=== PATIENT | male | born 1990 | race Caucasian/White ===

== ENCOUNTER 2023-02-28 22:34 | Emergency (ER) | payer OTHER, SELFPAY ==
[2023-02-28 22:39] VITALS: BP 123/66; PULSE 62; RESP 16; TEMP 36.3; O2SAT 96; BMI 32.8
--- NOTE | 2023-02-28 22:53 | CRLHL7_ITS ---
For Patients: As a result of the Cures Act, medical imaging exams and procedure reports are released immediately into your electronic medical record. You may view this report before your referring provider. If you have questions, please contact your health care provider. INDICATION: Palpitations. TECHNIQUE: Chest radiograph, 1 view. COMPARISON: None. FINDINGS: Lines/Tubes/Devices: None. Mediastinum: Normal cardiac silhouette. Lungs: No focal consolidation. Airways: The trachea remains midline. Pleura: No pleural effusions or pneumothorax. Bones: No acute osseous abnormalities. Upper Abdomen: Unremarkable. IMPRESSION: No acute cardiopulmonary process. Dictated by Ozzy Medina MD @ 02/28/2023 11:40:20 PM (Electronically Signed)
--- NOTE | 2023-02-28 22:54 | ED_ITS ---
HPI - Arrhythmia/Palpitations General Chief Complaint: Arrhythmia/Palpitations Stated Complaint: heart palpitations Time Seen by Provider: 02/28/23 22:48 History of Present Illness HPI narrative: Patient is a 32-year-old gentleman comes in today with palpitations for last 5 days. He feels like his heart is irregular at times and races at times and is slow at times. He saw his primary care doctor earlier in the week and had a Holter monitor. Those results are pending. He did have some chest pain earlier today but not for last several hours. He states he feeling his heart beat is weak and came into the emergency room. Had no shortness of breath no diaphoresis no nausea no vomiting no fevers no chills. He takes no medications and has no history of heart problems in the past. Upon arrival EKG upon my review shows normal sinus rhythm no acute ST or T-wave changes normal IL and QT intervals. Related Data Home Medications Medication Instructions Recorded Confirmed No Known Home Medications 02/28/23 02/28/23 Allergies Allergy/AdvReac Type Severity Reaction Status Date / Time No Known Drug Allergies Allergy Verified 02/28/23 22:44 Review of Systems Status of ROS: Reports: 10 or more systems reviewed and unremarkable except as noted in History and below PFSH PFS Social History Smoking Status: Former smoker Do you use any of these nicotine containing products: None Second hand tobacco smoke exposure: No How often do you have a drink containing alcohol: 4 or more times a week How many standard drinks containing alcohol do you have on a typical day: 1 or 2 AUDIT-C Alcohol total score: 4 Non-prescribed substance use: denies use Exam Narrative: Exam Narrative: EXAM GENERAL: Patient appears comfortable and well. Anxious. EYES: No scleral icterus. ENT: Tympanic membranes and oropharynx normal. THYROID: no thyroid nodules or thyromegaly. LYMPH: No supraclavicular or cervical lymphadenopathy. SKIN: Visible skin seen during exam normal or with benign process only. EXT: No dependent lower extremity pedal edema. HEART: Regular rate and rhythm with no murmurs, rubs, or gallops. LUNGS: Clear to auscultation bilaterally with no crackles or wheezes. ABD: Soft, non tender, non distended. PSYCH: Good eye contact, speech is not pressured. Const: Vital Signs, click to edit/add: Vital Signs - 24 hr 02/28/23 22:39 Temperature 97.4 F L Pulse Rate [Pulse Oximeter] 62 Respiratory Rate 16 Blood Pressure [Ri ght Upper Arm] 123/66 Pulse Oximetry 96 Oxygen Delivery Me thod Room Air Course Course ED Course: Patient seen and examined. Troponin D-dimer CBC basic metabolic panel chest x- ray ordered. Vital Signs Vital signs: Initial Vital Signs Temperature 97.4 F L 02/28/23 22:39 Temperature Source Temporal Artery Scan 02/28/23 22:39 Pulse Rate 62 02/28/23 22:39 Respiratory Rate 16 02/28/23 22:39 Blood Pressure 123/66 02/28/23 22:39 Blood Pressure Mean 85 02/28/23 22:39 Blood Pressure Position Sitting 02/28/23 22:39 Pulse Oximetry 96 02/28/23 22:39 Oxygen Delivery Method Room Air 02/28/23 22:39 Vital Signs Temperature 97.4 F L 02/28/23 22:39 Pulse Rate 62 02/28/23 22:39 Respiratory Rate 16 02/28/23 22:39 Blood Pressure 123/66 02/28/23 22:39 Pulse Oximetry 96 02/28/23 22:39 Oxygen Delivery Method Room Air 02/28/23 22:39 Temperature 97.4 F L 02/28/23 22:39 Pulse Rate 62 02/28/23 22:39 Respiratory Rate 16 02/28/23 22:39 Blood Pressure 123/66 02/28/23 22:39 Pulse Oximetry 96 02/28/23 22:39 Oxygen Delivery Method Room Air 02/28/23 22:39 MDM - Arrhythmia/Palpitations MDM Narrative Medical decision making narrative: Patient presents with a palpitations. Workup is completely normal including D-dimer troponin chest x-ray electrolytes CBC EKG. He has an outstanding and report from a Holter monitor which will be followed up by his primary physician. At this point reassurance is offered he will follow up with his primary Differential Diagnosis Differential diagnosis: Likely palpitations, anxiety, sinus tachycardia, artial fibrillation, artial flutter, ventricular premature beats, supraventricular tachycardia, ventricular tachycardia and WPW Lab Data Labs: Lab Results 02/28/23 Range/Units 23:04 WBC 5.82 (4.50-11.00) K/uL RBC 4.76 (4.30-5.90) m/uL Hgb 13.9 (13.5-17.5) gm/dL Hct 41.4 (37.0-53.0) % MCV 87 (80-100) fL MCH 29 (26-34) pg MCHC 34 (32-36) gm/dL RDW Coeff of Svetlana 13.0 (11.5-15.5) % Plt Count 296 (140-440) K/uL Neut % (Auto) 41.2 L (42.0-72.0) % Lymph % (Auto) 45.7 H (20-44) % [place] % (Auto) 10.7 (0.0-11.0) % Eos % (Auto) 1.0 (0.0-7.0) % Baso % (Auto) 0.7 (0.0-3.0) % Neut # (Auto) 2.40 (1.7-7.0) K/uL Lymph # (Auto) 2.70 (0.90-2.90) K/uL [place] # (Auto) 0.60 (0.00-0.90) K/UL Eos # (Auto) 0.06 (0.00-0.50) K/uL Baso # (Auto) 0.04 (0.00-0.30) K/uL Abs Immat Gran (auto) 0.04 (0.00-0.30) K/uL Imm/Tot Granulo (auto) 0.7 % D-Dimer Quant (PE/DVT) < 0.27 (0.00-0.50) ug/ml Sodium 139 (135-149) mmol/L Potassium 3.9 (3.6-5.1) mmol/L Chloride 105 (96-114) mmol/L Carbon Dioxide 26 (20-32) mmol/L Anion Gap 8 (7-15) mEq/L BUN 18 (5-24) mg/dL Creatinine 0.8 (0.5-1.5) mg/dL Estimated Creat Clear 142.81 Estimated GFR 119 ml/min Glucose 95 (60-115) mg/dL Calcium 9.0 (8.4-10.6) mg/dL Troponin I < 0.01 L (0.01-0.04) ng/mL Discharge Plan Discharge Clinical Impression: Palpitations Patient Disposition: Home, Self-Care Condition: Stable Instructions: Heart Palpitations (ED) Additional Instructions: Monitor symptoms Follow-up with your doctor as scheduled Activity Level: No Restrictions Discharge Diet: Regular Prescriptions: No Action No Known Home Medications Follow Up/Referrals: Provider,Not a Local [Primary Care Provider] - Stand Alone Forms: [employer] Info Instructions
[2023-02-28 23:08] LABS: Basophils Absolute Auto 0.04 K/uL (0.00-0.30); Basophils Percent Auto 0.7 % (0.0-3.0); Eosinophils Absolute Auto 0.06 K/uL (0.00-0.50); Hematocrit 41.4 % (37.0-53.0); Hemoglobin* 13.9 gm/dL (13.5-17.5); Immature Granulocytes Abs Auto 0.04 K/uL (0.00-0.30); Immature Granulocytes Pct Auto 0.7 %; Lymphocytes Percent Auto 45.7 % (20-44); Mean Corpuscular HGB Conc 34 gm/dL (32-36); Mean Corpuscular Hemoglobin 29 pg (26-34); Mean Corpuscular Volume 87 fL (80-100); Monocytes Percent Auto 10.7 % (0.0-11.0); Neutrophils Percent Auto 41.2 % (42.0-72.0); Platelet Count* 296 K/uL (140-440); Red Blood Count 4.76 m/uL (4.30-5.90); White Blood Count* 5.82 K/uL (4.50-11.00)
[2023-02-28 23:11] LABS: Slide Review Reflex No
[2023-02-28 23:19] LABS: Chloride* 105 mmol/L (96-114); Potassium* 3.9 mmol/L (3.6-5.1); Sodium* 139 mmol/L (135-149)
[2023-02-28 23:22] LABS: Anion Gap 8 mEq/L (7-15); Carbon Dioxide* 26 mmol/L (20-32); Creatinine* 0.8 mg/dL (0.5-1.5); Est. Creatinine Clearance* 142.81; Estimated Glomerular Filt Rate 119 ml/min
[2023-02-28 23:23] LABS: Blood Urea Nitrogen* 18 mg/dL (5-24); Glucose* 95 mg/dL (60-115)
[2023-02-28 23:24] LABS: D Dimer Quantitative* < 0.27 ug/ml (0.00-0.50)
[2023-02-28 23:40] LABS: Troponin I* < 0.01 ng/mL (0.01-0.04)
== END 2023-03-01 | disposition home or self-care (01) ==
PROVIDERS: Emergency Provider Internal Medicine
DX: R00.2 Palpitations (principal)
CPT/HCPCS: 36415; 71045; 80048; 84484; 85025; 85379; 93005; 95992; 99283; 99284; 99285